=== PATIENT | female | born 1960 | race Caucasian/White ===

== ENCOUNTER 2020-01-20 18:10 | Emergency (ER) | payer OTHER ==
[~2020-01-20] VITALS: Ht 167.6 cm; Wt 80.7 kg
[2020-01-20 18:25] VITALS: Ht 167.6 cm; Wt 80.7 kg
[2020-01-20 22:30] VITALS: BP 155/80
== END 2020-01-20 23:10 | disposition home or self-care (01) ==
LOC: ED 18:10
DX: S13.4XXA Sprain of ligaments of cervical spine, initial encounter (principal); S00.03XA Contusion of scalp, initial encounter; M53.3 Sacrococcygeal disorders, not elsewhere classified; W18.39XA Other fall on same level, initial encounter; Y93.89 Activity, other specified; Y92.89 Other specified places as the place of occurrence of the external cause; Y99.8 Other external cause status